=== PATIENT | female | born 1985 | race Caucasian/White ===

== ENCOUNTER 2024-08-11 06:42 | Day surgery (SDC) | payer MEDICAID ==
[2024-08-07 10:48] LABS: Urine Bacteria None Seen /hpf (None Seen)
[2024-08-07 10:52] LABS: Basophils # (auto) 0.1 10 ^3/uL (0-0.2); Eosinophils # (auto) 0.2 10 ^3/uL (0-0.8); Eosinophils % (auto) 3.2 % (0.0-7.0); Hematocrit 41.6 % (36.0-46.0); Lymphocytes # (auto) 1.8 10 ^3/uL (0.4-5.4); Lymphocytes % (auto) 26.7 % (10.0-50.0); Mean Corpuscular Hemoglobin 32.6 pg (28.0-32.0); Mean Corpuscular Hgb Conc. 33.7 g/dL (32.0-36.0); Mean Corpuscular Volume 96.6 fL (80.0-100.0); Monocytes # (auto) 0.4 10 ^3/uL (0-1.3); Monocytes % (auto) 5.9 % (0.0-12.0); Neutrophils # (auto) 4.3 10 ^3/uL (1.6-8.6); Neutrophils % (auto) 63.2 % (37.0-80.0); Platelet Count (auto) 268 10^3/uL (140-450); Red Blood Cells 4.31 10^6/uL (4.0-5.20); White Blood Cell 6.8 10^3/uL (4.4-10.8)
[2024-08-07 11:03] LABS: Urine Blood Negative /uL (Negative); Urine Clarity Clear (Clear); Urine Color Light-Yellow (Yellow); Urine Protein, UAD Negative (Negative); Urine Specific Gravity 1.006 (1.001-1.035); Urine Urobilinogen Normal (Negative); Urine WBC <1 /hpf (0 - 5); Urine pH 7.5 (5.0-9.0)
[2024-08-07 11:06] LABS: INR 1.02 (0.9-1.15); Prothrombin Time 10.8 sec (9.3-11.8)
[2024-08-07 11:47] LABS: Alanine Aminotransferase 13 U/L (7-40); Albumin 4.4 g/dL (3.2-4.8); Alkaline Phosphatase 39 U/L (46-116); Anion Gap 6 (5-15); Aspartate Aminotransferase 17 U/L (13-40); BUN/Creatinine Ratio 10.8 (10.0-20.0); Blood Urea Nitrogen 9 mg/dL (9-23); Calcium 9.5 mg/dL (8.7-10.4); Carbon Dioxide 29 mmol/L (20-31); Chloride 105 mmol/L (98-107); Glucose 97 mg/dL (74-106); Potassium 4.2 mmol/L (3.5-5.1); Sodium 140 mmol/L (136-145); Total Protein 6.9 g/dL (5.7-8.2)
[~2024-08-11] VITALS: Ht 165.1 cm; Wt 59.0 kg
[~2024-08-11 06:42] MED LIST: GABA-1308 PO; IBUP-1456 PO; MELO15TA29 PO
[2024-08-11] MEDS ORDERED: LIDOCAINE 1% HCL (LOCAL ANESTH.) INJ 20ML MDV ONE (06:53)
[2024-08-11] MEDS ORDERED: BUPIVACAINE HCL 0.25% P/F 10 ML VIAL ONE (06:53)
[2024-08-11] MEDS ORDERED: fentaNYL CITRATE 100 MCG/2 ML VL ONE (07:01)
[2024-08-11] MEDS ORDERED: PROPOFOL 10 MG/ML 20 ML IV ONE (07:01)
[2024-08-11] MEDS ORDERED: ePHEDrine SULFATE 50 MG/ML AMP ONE (07:31)
[2024-08-11] MEDS ORDERED: DexAMETHasone SOD PHOS 10MG/1ML VIAL INJ ONE (07:31)
[2024-08-11] MEDS ORDERED: ONDANSETRON HCL 4 MG/2 ML VIAL ONE (07:31)
[2024-08-11] MEDS ORDERED: MEPERIDINE HCL (50 MG/ML) 1 ML VIAL ONE (07:35)
[2024-08-11] MEDS ORDERED: BUPIVACAINE 0.5% P/F INJ 10 ML VIAL ONE ×2 (07:53→08:01)
--- NOTE | 2024-08-11 08:26 | POSTOP ---
Post-Operative Note Post-Operative Note Preop Diagnosis Deltoid ligament sprain, left ankle Ankle instability, left Postop Diagnosis: Deltoid ligament sprain, left ankle Ankle instability, left Operation performed Repair of deltoid ligament, left ankle Specimen None Anesthesia: General Anesthesiologist: Dr. Griffin Blood Loss(fluid mgmt) minimal Tourniquet Time 45 minutes Surgeon Brinda Hernandes Curator Of Manuscripts None Implant 2.9mm Bruno biomet suture anchor Complications & Mgmt None Additional Remarks None Date 08/11/24 Time 08:24 BRINDA HERNANDES DPM Aug 11, 2024 08:26
[2024-08-11] MEDS ORDERED: CEPH500C PO (08:30)
[2024-08-11] MEDS ORDERED: ASPI1TAB20 PO (08:30)
[2024-08-11] MEDS ORDERED: HYDR-4798 PO (08:30)
[2024-08-11 08:39] VITALS: TEMP 98; O2SAT 98
[2024-08-11] MEDS ORDERED: MEPERIDINE HCL (25 MG/ML) 1ML VIAL IV PRN (08:45)
[2024-08-11] MEDS ORDERED: HYDROmorphone HCL 2 MG/ML VL/or syr IV PRN (08:45)
[2024-08-11] MEDS ORDERED: ACETAMINOPHEN IV 1000 MG/100ML (10MG/ML) IV PRN (08:45)
[2024-08-11] MEDS: ONDANSETRON HCL 4 MG/2 ML VIAL IV ONE (09:03)
[2024-08-11 09:24] VITALS: BP 108/65; PULSE 79; RESP 12; O2SAT 96
[2024-08-11] MEDS: METOCLOPRAMIDE HCL 5MG/ml INJ 2ml VIAL IV ONE (09:30)
--- NOTE | 2024-08-11 20:43 | DVHOP2 ---
Operative Report - 2 Report Details Date: 08/11/24 Preop Diagnosis: Deltoid ligament sprain, left ankle Ankle instability, left Postop Diagnosis: Deltoid ligament sprain, left ankle Ankle instability, left Surgeon: Brinda Hernandes Manager Night: None Anesthesiologist: Dr. Griffin Anesthesia: General Implant: 2.9mm Bruno biomet suture anchor Consent: The patient was informed of the risks and benefits of the procedure. These include but are not limited to complications of anesthesia, postoperative infection, incomplete relief of symptoms, recurrence of symptoms, damage to blood vessels, nerves and tendons, deep venous thrombosis, pulmonary embolism and possible need for repeat surgery in the future. Complications: None Estimated Blood Loss: minimal Findings: Consistent with the procedure Indications for Surgery: left medial ankle pain Name of Procedure Performed Repair of deltoid ligament, left ankle Procedure Details Procedure Details: The patient was identified in the preoperative holding area where the proper IV had been instituted. The history, physical, and consent forms were reviewed, signed, and copies were placed in the chart. The patient confirmed NPO status since midnight. The patient was medically cleared by Anesthesia with no contraindications to the planned procedure. All of the patient's questions and concerns were addressed and no guarantees were given or implied. The patient was then transported to the operating room and placed on the table in the supine position. Several layers of webril were then placed around the l eft thigh and a pneumatic tourniquet was applied. At this time, General anesthesia was established. An Ankle block to the left ankle was done with 10cc of 2% Lidocaine plain. At this time, left foot and ankle was prepped and draped in the usual sterile manner. A time out was performed and all included information confirmed and agreed upon. The tourniquet was then inflated to a total of 250?mmHg. Attention was then directed to the medial left ankle where a linear incision approximately 4-cm long was made in the skin extending over the medial malleolus with a #15 blade. This incision was then carried down full thickness over the through the subcutaneous tissue, being sure to cauterize any vessels as necessary. The deltoid ligament was identified and noted to be ruptured. The capsule and medial ligamentous complex was sharply dissected free from the medial malleolus taking care to leave a cuff of capsular tissue as the proximal edge of the medial malleolus. The posterior tibial tendon was identified and inspected with no obvious tears present. The medial malleolus was prepped for anchor insertion. One 2.9mm Bruno Biomet suture anchor was then placed under fluoroscopic guidance and the fiberwire sutures were released. The Deltoid ligament and capsule were then advanced on to the medial malleolus while holding slight inversion and tied and cut. The remaining fiberwire was used to repair capsular cuff further augmenting the repair. The medial ankle complex was stressed noting good stability. The area was copiously irrigated with sterile saline. The deep tissue was then reapproximated with 3-0 Vicryl in a simple interrupted suture fashion. The subcutaneous tissue tissue was then closed with 4-0 Vicryl in a continuous running suture fashion. The skin was then reapproximated using 3-0 Nylon in a horizontal mattress fashion. The incision was dressed with betadine soaked adaptic, dry gauze and kerlix. The tourniquet was deflated and instantaneous perfusion was noted to all digits of the left foot. A well padded posterior splint was applied to left lower extremity keeping the ankle in slight inversion. The pt was then transported to PACU tolerating both anesthesia and procedure well with vital signs stable and vascular status intact. Pt will be discharged home per PACU with the following written and oral postoperative instructions. 1. Keep dressing dry, clean and intact until follow-up appointment 2. Non weightbearing to the left foot , use assistive devices for ambulation 3. Ice and elevate extremity when at rest 4. Follow-up as scheduled Specimen: None Condition Stable Disposition Home BRINDA HERNANDES DPM Aug 11, 2024 20:43
--- NOTE | 2024-08-29 14:33 | DVH ---
XY C ARM FLUOROSCOPY UP TO 60MIN, HISTORY: REPAIR OF LEFT ANKLE DISRUPTIVE LIGAMENTS TECHNICAL DATA: 10 intraoperative fluoroscopic spot images were obtained of the ankle. COMPARISON: None FINDINGS/IMPRESSION: C-arm fluoroscopic images were obtained for anatomic localization. The images are of low resolution b ut demonstrate instrumentation over the ankle . Total fluoroscopy time was 12 seconds. Please see the operative report for further details.
== END 2024-08-11 09:45 | disposition home or self-care (01) ==
LOC: SUR 06:42
PROVIDERS: ATTEND Student in an Organized Health Care Education/Training Program
DX: S93.422A Sprain of deltoid ligament of left ankle, initial encounter (principal); M25.372 Other instability, left ankle; M76.822 Posterior tibial tendinitis, left leg; F11.90 Opioid use, unspecified, uncomplicated; F17.210 Nicotine dependence, cigarettes, uncomplicated; Z90.710 Acquired absence of both cervix and uterus; Z88.2 Allergy status to sulfonamides; Z98.891 History of uterine scar from previous surgery; Z98.890 Other specified postprocedural states; Z79.82 Long term (current) use of aspirin; X58.XXXA Exposure to other specified factors, initial encounter; Y93.89 Activity, other specified; Y92.89 Other specified places as the place of occurrence of the external cause; Y99.8 Other external cause status
CPT/HCPCS: 27695; 36415; 64445; 64447; 73600; 80053; 81001; 84702; 85025; 85610; 85730; C1713; J1100; J2003; J2175; J2405; J2704; J2765; J3010; J3490; J7030; 76000

== ENCOUNTER 2025-03-05 10:54 | Inpatient (IN) | payer MEDICAID ==
[2025-03-01 10:53] LABS: Urine Bacteria None Seen /hpf (None Seen)
[2025-03-01 11:03] LABS: Basophils # (auto) 0.1 10 ^3/uL (0-0.2); Basophils % (auto) 0.4 % (0.0-2.0); Eosinophils # (auto) 0.1 10 ^3/uL (0-0.8); Eosinophils % (auto) 0.7 % (0.0-7.0); Hematocrit 42.5 % (36.0-46.0); Hemoglobin 14.2 g/dL (12.2-16.2); Lymphocytes # (auto) 1.6 10 ^3/uL (0.4-5.4); Lymphocytes % (auto) 14.1 % (10.0-50.0); Mean Corpuscular Hemoglobin 31.5 pg (28.0-32.0); Mean Corpuscular Hgb Conc. 33.5 g/dL (32.0-36.0); Mean Corpuscular Volume 93.9 fL (80.0-100.0); Monocytes # (auto) 0.4 10 ^3/uL (0-1.3); Monocytes % (auto) 3.5 % (0.0-12.0); Neutrophils # (auto) 9.4 10 ^3/uL (1.6-8.6); Neutrophils % (auto) 81.3 % (37.0-80.0); Platelet Count (auto) 258 10^3/uL (140-450); Red Blood Cells 4.53 10^6/uL (4.0-5.20); Red Cell Distribution Width 13.7 % (11.8-14.3); White Blood Cell 11.6 10^3/uL (4.4-10.8)
[2025-03-01 11:15] LABS: Alanine Aminotransferase 31 U/L (7-40); Albumin 4.7 g/dL (3.2-4.8); Anion Gap 5 (5-15); Aspartate Aminotransferase 23 U/L (13-40); Blood Urea Nitrogen 12 mg/dL (9-23); Calcium 9.8 mg/dL (8.7-10.4); Carbon Dioxide 27 mmol/L (20-31); Chloride 107 mmol/L (98-107); Glucose 96 mg/dL (74-106); Potassium 4.7 mmol/L (3.5-5.1); Sodium 139 mmol/L (136-145); Total Protein 7.5 g/dL (5.7-8.2)
[2025-03-01 11:16] LABS: Alkaline Phosphatase 42 U/L (46-116); Bilirubin, Total 1.4 mg/dL (0.2-1.0)
[2025-03-01 11:17] LABS: INR 0.95 (0.9-1.15); Partial Thromboplastin Time 25.2 SEC (24.5-34.5); Prothrombin Time 10.1 sec (9.3-11.8)
[2025-03-01 11:27] LABS: Urine Blood Negative /uL (Negative); Urine Clarity Clear (Clear); Urine Color Light-Yellow (Yellow); Urine Protein, UAD Negative (Negative); Urine Specific Gravity 1.009 (1.001-1.035); Urine Squamous Epithelial Cell FEW /hpf (<5); Urine Urobilinogen Normal (Negative); Urine WBC < 1 /HPF (0-5); Urine pH 6.5 (5.0-9.0)
[~2025-03-05] VITALS: Ht 165.1 cm; Wt 69.4 kg
[2025-03-05] MEDS ORDERED: KETAMINE 50mg/ML 1ml syringe ONE (11:54)
[2025-03-05] MEDS ORDERED: HYDROmorphone HCL 2 MG/ML VL/or syr ONE (11:54)
[2025-03-05] MEDS ORDERED: PROPOFOL 10 MG/ML 20 ML IV ONE (11:54)
[2025-03-05] MEDS ORDERED: ONDANSETRON HCL 4 MG/2 ML VIAL ONE (11:54)
[2025-03-05] MEDS ORDERED: GLYCOPYRROLATE 0.2 MG/ML 1ML VIAL ONE (11:54)
[2025-03-05] MEDS ORDERED: DexAMETHasone SOD PHOS 10MG/1ML VIAL INJ ONE (11:54)
[2025-03-05] MEDS ORDERED: fentaNYL CITRATE 100 MCG/2 ML VL ONE (11:54)
[2025-03-05] MEDS ORDERED: ePHEDrine SULFATE 50 MG/ML AMP ONE (11:54)
[2025-03-05] MEDS ORDERED: KETOROLAC TROMETH 30 MG/ML 1ML VIAL ONE (11:54)
[2025-03-05] MEDS ORDERED: MIDAZOLAM HCL 2MG/2ML 2ml VIAL (1mg/ml) ONE (11:54)
[2025-03-05] MEDS: BUPIVACAINE 0.5% P/F INJ 10 ML VIAL ONE (12:26)
[2025-03-05] MEDS: ceFAZolin 2 GM/D5W50ml 50 ML IV ONE (12:45)
--- NOTE | 2025-03-05 13:11 | DVHOP2 ---
Operative Report - 2 Report Details Date: 03/05/25 Preop Diagnosis: 1. Left ankle instability 2. Left high ankle sprain 3. Left ankle sprain 4. Left ankle pain Postop Diagnosis: Same as preop Surgeon: Padmini Pollack MD Anesthesiologist: See anesthesia Anesthesia: General Implant: Arthrex 2 hole plate with 2 syndesmosis tight ropes Arthrex FiberTak x2 Consent: The patient was informed of the risks and benefits of the procedure. These include but are not limited to complications of anesthesia, postoperative infection, incomplete relief of symptoms, recurrence of symptoms, damage to blood vessels, nerves and tendons, deep venous thrombosis, pulmonary embolism and possible need for repeat surgery in the future. Complications: None Estimated Blood Loss: Minimal Fluids: See anesthesia Findings: Consistent with the diagnosis Indications for Surgery: Worsening left ankle pain instability Name of Procedure Performed 1. Left ankle syndesmosis ORIF (35119) 2. Left ankle brostrom (27448) 3. Left ankle arthrotomy (13689) Procedure Details Procedure Details: PRE-PROCEDURE INFORMATION: In the pre-op holding area, the extremity to be operated on was clearly marked and the patient verified correct laterality of the marking. The patient was transferred to the OR table and placed in a supine position. A timeout was performed in which identification of the correct patient, procedure, location, and materials was done. The left foot and leg were prepped and draped in normal sterile fashion. The foot and leg were exsanguinated and the thigh tourniquet was inflated to 250 mmHg. DESCRIPTION OF PROCEDURE: Attention was directed to the left lateral leg with a fibula fracture was located. A linear longitudinal incision was made on the lateral leg. This incision was deepened with sharp and blunt dissection to the level of the periosteum. Care was taken throughout the dissection to avoid damage to the neurovascular structures in the peroneal tendons. A periosteal elevator was used to reflect all the soft tissue and periosteum from the bone in the fracture fragment. Utilizing a 2 hole plate, an all of was used to hold the plate on the lateral side of the fibula. Using the accompanying drill for the syndesmosis tight rope, the distal hole was then drilled and the suture button was then placed with adequate compression. The proximal hole was then drilled the same way. It was noted in the intraoperative fluoroscopy the adequate reduction of the deformity. All hardware was adequately placed verified on fluoroscopy as well. Attention was directed to the left lateral ankle where a curvilinear longitudinal incision was made just anterior to the distal fibula. This incision was deepened through blunt and sharp dissection to the level of both the fibula and the talus so that both were visualized. Care was taken throughout dissection to avoid damage to neurovascular structures. An arthrotomy of the ankle joint was performed revealing normal appearing joint fluid. It was noted that the anterior talofibular ligament was attenuated and needed repair. The talar dome was inspected and noted to be free of osteochondral lesions. An arthrex internal brace was then drilled and placed in the lateral cortice of the talus. Utilizing a periosteal elevator, the periosteum of the anterior distal fibula was reflected in preparation for the placement of the soft tissue anchors. A soft tissue anchor was then placed proximal and distal to the internal brace. The internal brace was then drilled and placed in the distal aspect of the fibula. The knotless fibertak anchors were then used to recreate the ATFL and CFL ligaments. Prior to the procedure being performed, there was a positive anterior drawer sign. After, this procedure, there was a negative anterior drawer. The capsule was then oversewn with 2-0 Vicryl. The wound was irrigated copiously with normal saline and closed in layers All surgical wounds were irrigated copiously with saline and closed in layers with the aforementioned suture material. A dry sterile dressing was placed on the surgical extremity. The patient was placed in a cam boot POSTOPERATIVE INFORMATION: The patient tolerated the above noted procedure and anesthesia well and was transferred to the PACU with vital signs stable, and vascular status intact with capillary refill intact to all digits. Postoperative instructions reviewed in detail with the patient with written instructions provided. Patient will return to clinic in approximately 10-14 days for first postoperative visit. Patient has the number of the clinic and was instructed to call prior to that time should any problems, questions, or concerns arise. Patient will be admitted to the hospital for pain control Condition Good Disposition Still a Patient PADMINI POLLACK DPM March 05, 2025 13:11
[2025-03-05 13:12] VITALS: PULSE 83; RESP 16; O2SAT 100
--- NOTE | 2025-03-05 14:23 | DVHHP2 ---
Review of Systems Allergies: Coded Allergies: Sulfa Antibiotics (Unverified Allergy, Severe, anaphylaxis, 08/07/24) Exam Vital Signs Vital Signs Date Time Temp Pulse Resp B/P (MAP) Pulse Ox O2 Delivery O2 Flow Rate FiO2 03/05/25 13:12 Mask 6.0 03/05/25 13:12 96.8 74 10 107/59 (75) 100 96.8 Labs/Xrays Labs Test 03/01/25 10:49 Range/Units White Blood Count 11.6 H 4.4-10.8 10^3/uL Red Blood Count 4.53 4.0-5.20 10^6/uL Hemoglobin 14.2 12.2-16.2 g/dL Hematocrit 42.5 36.0-46.0 % Mean Corpuscular Volume 93.9 80.0-100.0 fL Mean Corpuscular Hemoglobin 31.5 28.0-32.0 pg Mean Corpuscular Hemoglobin Concent 33.5 32.0-36.0 g/dL Red Cell Distribution Width 13.7 11.8-14.3 % Platelet Count 258 140-450 10^3/uL Mean Platelet Volume 7.6 6.9-10.8 fL Neutrophils (%) (Auto) 81.3 H 37.0-80.0 % Lymphocytes (%) (Auto) 14.1 10.0-50.0 % Monocytes (%) (Auto) 3.5 0.0-12.0 % Eosinophils (%) (Auto) 0.7 0.0-7.0 % Basophils (%) (Auto) 0.4 0.0-2.0 % Neutrophils # (Auto) 9.4 H 1.6-8.6 10 ^3/uL Lymphocytes # (Auto) 1.6 0.4-5.4 10 ^3/uL Monocytes # (Auto) 0.4 0-1.3 10 ^3/uL Eosinophils # (Auto) 0.1 0-0.8 10 ^3/uL Basophils # (Auto) 0.1 0-0.2 10 ^3/uL Nucleated Red Blood Cells 0.0 % Prothrombin Time 10.1 9.3-11.8 sec Prothrombin Time INR 0.95 0.9-1.15 Activated Partial Thromboplast Time 25.2 24.5-34.5 SEC Urine Color Light-yellow Yellow Urine Clarity Clear Clear Urine pH 6.5 5.0-9.0 Urine Specific [place] 1.009 1.001-1.035 Urine Protein Negative Negative Urine Ketones 1+ H Negative Urine Blood Negative Negative /uL Urine Nitrite Negative Negative Urine Bilirubin Negative Negative Urine Urobilinogen Normal Negative mg/dL Urine Leukocyte Esterase Negative Negative /uL Urine RBC <1 0 - 4 /hpf Urine Microscopic WBC < 1 0-5 /HPF Urine Squamous Epithelial Cells Few <5 /hpf Urine Bacteria None seen None Seen /hpf Urine Glucose Normal Normal mg/dL Sodium Level 139 136-145 mmol/L Potassium Level 4.7 3.5-5.1 mmol/L Chloride Level 107 98-107 mmol/L Carbon Dioxide Level 27 20-31 mmol/L Anion Gap 5 5-15 Blood Urea Nitrogen 12 9-23 mg/dL Creatinine 0.75 0.550-1.02 mg/dL Glomerular Filtration Rate Calc 104 >90 mL/min BUN/Creatinine Ratio 16.0 10.0-20.0 Serum Glucose 96 74-106 mg/dL Calcium Level 9.8 8.7-10.4 mg/dL Total Bilirubin 1.4 H 0.2-1.0 mg/dL Aspartate Amino Transferase (AST) 23 13-40 U/L Alanine Aminotransferase (ALT) 31 7-40 U/L Alkaline Phosphatase 42 L 46-116 U/L Total Protein 7.5 5.7-8.2 g/dL Albumin 4.7 3.2-4.8 g/dL Beta HCG, Quantitative 0.9 L 1.5-4.2 mIU/mL Assessment/Plan Assessment/Plan see dictated note Plan discussed with: Patient Date of Service: March 05, 2025 Billing Provider: MIRA LOWE MD Common Visit Codes: [id number] INP/OBS CARE (HIGH) MIRA LOWE MD March 05, 2025 14:23
[2025-03-05] MEDS ORDERED: ONDANSETRON HCL 4 MG/2 ML VIAL IV PRN (14:30)
[2025-03-05] MEDS ORDERED: ACETAMINOPHEN 325 MG TAB PO PRN (14:30)
--- NOTE | 2025-03-05 14:46 | DVHHP ---
ADMIT DATE: 03/05/2025 HISTORY OF PRESENT ILLNESS: The patient is a 39-year-old lady who is admitted after she underwent surgery on the left ankle for malunion of the ankle. The patient at this time denies any significant pain. No chest pain, no shortness of breath, nausea or vomiting. REVIEW OF SYSTEMS: Review of the rest of systems, otherwise currently negative. PAST MEDICAL HISTORY: Significant for trauma to the right side of the face with subsequent neuropathic pain. MEDICATIONS: She takes gabapentin 300 mg 3 times a day. SOCIAL HISTORY: She smokes marijuana. Denies smoking tobacco or alcohol. Lives at home with her family. FAMILY HISTORY: Negative. PHYSICAL EXAMINATION: GENERAL: The patient is awake and alert. VITAL SIGNS: Temperature of 98.6, pulse 72 per minute, blood pressure 113/76. SHEENT: Unremarkable. NECK: There is no JVD. No pedal edema. LUNGS: Equal bilaterally. No added sounds. CARDIOVASCULAR: S1 and S2 are regular without murmurs. ABDOMEN: Soft. There is no organomegaly. NEUROLOGIC: Nonfocal. MUSCULOSKELETAL: The left ankle is currently in a dressing. ASSESSMENT AND PLAN: * Status post previous right facial trauma with neuropathic pain, for which she will continue on gabapentin. * Status post left ankle surgery for malunion of the ankle, for which she will be placed on pain medication and followed up by Dr. Patel. MD LEO Johnson/GINNY TID: [id number] RECEIPT: [id number]
[2025-03-05] MEDS: HYDROmorphone HCL 2 MG/ML VL/or syr IV PRN (15:03)
--- NOTE | 2025-03-05 15:09 | DVHHP ---
ADMIT DATE: 03/05/2025 HISTORY OF PRESENT ILLNESS: The patient is a 39-year-old lady who was admitted after she underwent surgery on the left ankle for malunion of her left ankle trauma some time ago. The patient at this time denies any significant pain. No chest pain. No nausea or vomiting. No shortness of breath. REVIEW OF REST OF SYSTEMS: Otherwise negative. PAST MEDICAL HISTORY: Significant for trauma on the right side of the face with subsequent pain issues. MEDICATIONS: She takes gabapentin 300 mg t.i.d. ALLERGIES: SULFA. SOCIAL HISTORY: Using marijuana. Denies smoking. Lives with family. FAMILY HISTORY: Negative. PHYSICAL EXAMINATION: GENERAL: The patient is awake and alert. VITAL SIGNS: Temperature of 98.4, pulse 71 per minute, blood pressure 114/79. SHEENT: Unremarkable. NECK: There is no JVD. LUNGS: Equal bilaterally. No added sounds. CARDIOVASCULAR: S1, S2 is regular without murmurs. ABDOMEN: Soft. There is no organomegaly. EXTREMITIES: No pedal edema. NEUROLOGIC: Nonfocal. MUSCULOSKELETAL: The left ankle is currently in a dressing. ASSESSMENT AND PLAN: * Right facial injury with neuropathic pain. The patient will continue on gabapentin. * Status post left ankle surgery for malunion of previous fracture. The patient will be placed on pain medication and followed up by Podiatry. MD LEO Johnson/MARIKA/DARLENE TID: [id number] RECEIPT: [id number]
[2025-03-05] MEDS: HYDROcodone-ACET 5/325MG TAB PO PRN (15:42)
[2025-03-05 17:00] VITALS: BP 114/62; PULSE 71; RESP 18; TEMP 97.3; O2SAT 97
[2025-03-05 17:01] VITALS: O2SAT 96
[2025-03-05] MEDS: ONDANSETRON HCL 4 MG/2 ML VIAL IV ONE (17:55)
[2025-03-05] MEDS: LIDOCAINE W/ EPINEPHRINE 1% 20ML VIAL ONE (17:55)
[2025-03-05] MEDS: MORPHINE SULFATE INJ 2 MG/ml SYRG IV PRN (20:34)
[2025-03-05 20:39] VITALS: BP 129/61; PULSE 81; RESP 16; TEMP 98.3; O2SAT 97
[2025-03-05] MEDS: GABAPENTIN 300 MG CAP PO SCH (21:42)
[2025-03-06 01:00] VITALS: BP 114/59; PULSE 74; RESP 14; TEMP 97.9; O2SAT 95
[2025-03-06 05:00] VITALS: BP 112/69; PULSE 68; RESP 14; TEMP 98.2; O2SAT 100
[2025-03-06 06:27] LABS: Basophils # (auto) 0 10 ^3/uL (0-0.2); Basophils % (auto) 0.1 % (0.0-2.0); Eosinophils # (auto) 0 10 ^3/uL (0-0.8); Hemoglobin 13.3 g/dL (12.2-16.2); Lymphocytes % (auto) 8.4 % (10.0-50.0); Mean Corpuscular Hemoglobin 32.4 pg (28.0-32.0); Mean Corpuscular Volume 95.4 fL (80.0-100.0); Monocytes # (auto) 0.4 10 ^3/uL (0-1.3); Monocytes % (auto) 3.9 % (0.0-12.0); Neutrophils % (auto) 87.6 % (37.0-80.0); Platelet Count (auto) 242 10^3/uL (140-450); Red Blood Cells 4.09 10^6/uL (4.0-5.20); Red Cell Distribution Width 13.4 % (11.8-14.3); White Blood Cell 11.4 10^3/uL (4.4-10.8)
[2025-03-06 06:31] LABS: Alanine Aminotransferase 14 U/L (7-40); Anion Gap 6 (5-15); BUN/Creatinine Ratio 9.4 (10.0-20.0); Calcium 9.6 mg/dL (8.7-10.4); Carbon Dioxide 27 mmol/L (20-31); Chloride 107 mmol/L (98-107); Potassium 4.8 mmol/L (3.5-5.1); Sodium 140 mmol/L (136-145); Total Protein 6.4 g/dL (5.7-8.2)
[2025-03-06 06:32] LABS: Bilirubin, Total 0.7 mg/dL (0.2-1.0)
[2025-03-06 06:33] LABS: Alkaline Phosphatase 37 U/L (46-116); Aspartate Aminotransferase 12 U/L (13-40); Blood Urea Nitrogen 6 mg/dL (9-23); Glucose 109 mg/dL (74-106)
[2025-03-06 09:00] VITALS: BP 101/73; PULSE 69; RESP 16; TEMP 97.9; O2SAT 100
--- NOTE | 2025-03-06 10:35 | DVHPN2 ---
Progress Note Date Seen: March 06, 2025 Medical Necessity Reason Pt with a Central, PICC or Fol: No Subjective Patient reports: No new complaints Review of Systems: HEENT:Normal, CVS:Normal, RESPIRATORY:Normal, GI:Normal, :Normal, MSK:Normal, NEURO:Normal Objective vital signs Vital Sign Date Time Temp Pulse Resp B/P (MAP) Pulse Ox O2 Delivery O2 Flow Rate FiO2 03/06/25 09:00 97.9 69 16 101/73 (82) 100 97.9 03/06/25 08:10 Room Air* 0 21 Total Intake and Output 03/05/25 03/05/25 03/06/25 15:00 23:00 07:00 Intake Total 150 ml 650 ml Balance 150 ml 650 ml medications Current Medications Medications Dose Ordered Sig/Rosario Route Start Time Stop Time Status Last Admin Dose Admin Gabapentin 300 mg TID PO 03/05/25 22:00 03/06/25 06:00 300 MG Acetaminophen/ Hydrocodone Bitart 1 tab Q6HPRN PRN PO 03/05/25 14:30 03/06/25 04:25 1 TAB Acetaminophen 650 mg Q6HP PRN PO 03/05/25 14:30 Morphine Sulfate 2 mg Q4HPRN PRN IV 03/05/25 14:30 03/06/25 07:50 2 MG Ondansetron HCl 4 mg Q6HPRN PRN IV 03/05/25 14:30 Examination: GENERAL:Normal, HEENT:Normal, NECK:Normal, LUNGS:Normal, CVS:Normal, ABDOMEN:Normal, MSK:Normal, MSK:Abnormal (left ankle boot), SKIN:Normal, NEURO:Normal, :Normal laboratory and microbiology Laboratory Tests 03/06/25 05:34 Test 03/06/25 05:34 Range/Units Serum Glucose 109 H 74-106 mg/dL Problem List/Assessment/Plan Problem List/Assessment/Plan * s/p Right facial injury with neuropathic pain. The patient will continue on gabapentin. * Status post left ankle surgery for malunion of previous fracture. The patient will be placed on pain medication and followed up by Podiatry, cont pain meds Plan discussed with: Patient My Orders My Orders Orders - MIRA LOWE MD Procedure Category Date Status Time Admit ADMIT 03/05/25 Transmitted 14:20 Regular Diet DIET 03/05/25 Transmitted Dinner Gabapentin Capsule PHA 03/05/25 In Process (Neurontin Capsule) 22:00 Hydrocodone-Acet PHA 03/05/25 In Process 5/325mg Tab ([place] 14:30 Acetaminophen Tablet PHA 03/05/25 In Process (Tylenol Tablet) 14:30 Morphine Sulfate PHA 03/05/25 In Process Injection 14:30 Ondansetron Hcl PHA 03/05/25 In Process (Zofran) 14:30 Date of Service: March 06, 2025 Billing Provider: MIRA LOWE MD Common Visit Codes: [id number] INP/OBS CARE(HIGH) MIRA LOWE MD March 06, 2025 10:35
[2025-03-06 13:00] VITALS: BP 110/68; PULSE 68; RESP 18; TEMP 98.4; O2SAT 100
[2025-03-06 17:00] VITALS: BP 130/94; PULSE 85; RESP 18; TEMP 98.8; O2SAT 100
[2025-03-06] MEDS: OXYCODONE W/ ACETAMINOPHEN 5/325MG TABLET PO PRN (19:59)
[2025-03-06 21:00] VITALS: BP 102/75; PULSE 82; RESP 19; TEMP 98.1; O2SAT 99
[2025-03-07 01:00] VITALS: BP 110/59; PULSE 74; RESP 17; TEMP 98.3; O2SAT 99
[2025-03-07 05:00] VITALS: BP 112/67; PULSE 73; RESP 17; TEMP 98.5; O2SAT 97
[2025-03-07 09:00] VITALS: BP_SYST 107; BP_SYST 122; BP_DIAS 68; BP_DIAS 70; PULSE 72; PULSE 74; RESP 16; TEMP 98; TEMP 98.2; O2SAT 96; O2SAT 99
--- NOTE | 2025-03-07 09:48 | DVHDS2 ---
Discharge Summary Date of Admission March 05, 2025 at 14:20 Date of Discharge: March 07, 2025 Labs/Diagnostic Data: Laboratory Results Test 03/06/25 05:34 03/01/25 10:49 White Blood Count 11.4 10^3/uL (4.4-10.8) Red Blood Count 4.09 10^6/uL (4.0-5.20) Hemoglobin 13.3 g/dL (12.2-16.2) Hematocrit 39.0 % (36.0-46.0) Mean Corpuscular Volume 95.4 fL (80.0-100.0) Mean Corpuscular Hemoglobin 32.4 pg (28.0-32.0) Mean Corpuscular Hemoglobin Concent 34.0 g/dL (32.0-36.0) Red Cell Distribution Width 13.4 % (11.8-14.3) Platelet Count 242 10^3/uL (140-450) Mean Platelet Volume 8.1 fL (6.9-10.8) Neutrophils (%) (Auto) 87.6 % (37.0-80.0) Lymphocytes (%) (Auto) 8.4 % (10.0-50.0) Monocytes (%) (Auto) 3.9 % (0.0-12.0) Eosinophils (%) (Auto) 0.0 % (0.0-7.0) Basophils (%) (Auto) 0.1 % (0.0-2.0) Neutrophils # (Auto) 10.0 10 ^3/uL (1.6-8.6) Lymphocytes # (Auto) 1.0 10 ^3/uL (0.4-5.4) Monocytes # (Auto) 0.4 10 ^3/uL (0-1.3) Eosinophils # (Auto) 0 10 ^3/uL (0-0.8) Basophils # (Auto) 0 10 ^3/uL (0-0.2) Nucleated Red Blood Cells 0.0 % Sodium Level 140 mmol/L (136-145) Potassium Level 4.8 mmol/L (3.5-5.1) Chloride Level 107 mmol/L (98-107) Carbon Dioxide Level 27 mmol/L (20-31) Anion Gap 6 (5-15) Blood Urea Nitrogen 6 mg/dL (9-23) Creatinine 0.64 mg/dL (0.550-1.02) Glomerular Filtration Rate Calc 116 mL/min (>90) BUN/Creatinine Ratio 9.4 (10.0-20.0) Serum Glucose 109 mg/dL (74-106) Calcium Level 9.6 mg/dL (8.7-10.4) Total Bilirubin 0.7 mg/dL (0.2-1.0) Aspartate Amino Transferase (AST) 12 U/L (13-40) Alanine Aminotransferase (ALT) 14 U/L (7-40) Alkaline Phosphatase 37 U/L (46-116) Total Protein 6.4 g/dL (5.7-8.2) Albumin 4.0 g/dL (3.2-4.8) Prothrombin Time 10.1 sec (9.3-11.8) Prothrombin Time INR 0.95 (0.9-1.15) Activated Partial Thromboplast Time 25.2 SEC (24.5-34.5) Urine Color Light-yellow (Yellow) Urine Clarity Clear (Clear) Urine pH 6.5 (5.0-9.0) Urine Specific [place] 1.009 (1.001-1.035) Urine Protein Negative (Negative) Urine Ketones 1+ (Negative) Urine Blood Negative /uL (Negative) Urine Nitrite Negative (Negative) Urine Bilirubin Negative (Negative) Urine Urobilinogen Normal mg/dL (Negative) Urine Leukocyte Esterase Negative /uL (Negative) Urine RBC <1 /hpf (0 - 4) Urine Microscopic WBC < 1 /HPF (0-5) Urine Squamous Epithelial Cells Few /hpf (<5) Urine Bacteria None seen /hpf (None Seen) Urine Glucose Normal mg/dL (Normal) Beta HCG, Quantitative 0.9 mIU/mL (1.5-4.2) Other Laboratory Tests 03/06/25 05:34 Brief Hx & Hospital Course: SEE DICTATED NOTE Condition at Discharge: Good Final Diagnosis/Problems List LEFT ANKLE SURGERY Discharge Disposition: Home Discharge Instruct/Medications Diet: Regular Activity: See Comment Activity comment: LEFT LEG CRUTCHES Follow Up/Referral: FU WITH PODIATRY IN 1 WK Medications: SCRIPT TO PHARMACY DC HOME IF OK WITH PODIATRY Discharge Statement: "Patient was advised to return to the ER or call 911 if any headaches, dizziness, shortness of breath, chest pain, abdominal pain, bleeding, fevers, or worsening of medical condition. Patient was counseled about treatment plan, medications, possible side effects, patientverbalized understanding. All questions were answered to the best of my ability. This discharge took greater then 30 minutes in planning, reviewing documentation, counseling the patient, and discussing with other team members." ASSESSMENT ASSESSMENT Assessment LEFT ANKLE SURGERY Date of Service: March 07, 2025 Billing Provider: MIRA LOWE MD Common Visit Codes: [id number] DISCH DAY >30min MIRA LOWE MD March 07, 2025 09:48
[2025-03-07] MEDS ORDERED: PERCOT PO (09:49)
--- NOTE | 2025-03-07 10:20 | DVHDS ---
DATE OF DISCHARGE: 03/07/2025 HISTORY OF PRESENT ILLNESS: The patient is a 39-year-old lady who was admitted after she underwent surgery for left ankle for malunion. The patient has previous history of right facial trauma. HOSPITAL COURSE: The patient did well postoperatively. The patient's pain is improved. She will now be discharged home to be on Percocet 5/325 t.i.d. p.r.n. for pain and follow up with Dr. Patel in the next 1-2 weeks. FINAL DIAGNOSES: Therefore, * History of facial trauma with neuropathic pain. * Status post left ankle surgery for malunion. Time spent in discharge planning and review of plan with the patient and nursing was 36 minutes. MD LEO Johnson/KELSIE TID: [id number] RECEIPT: [id number]
[2025-03-07 12:11] VITALS: BP 114/81; PULSE 80; RESP 18
== END 2025-03-07 14:20 | disposition home or self-care (01) | DRG 313 ==
LOC: SUR 10:54 → OVERFLOW 14:20 → EAST 16:31
PROVIDERS: ADMIT Internal Medicine; ATTEND Internal Medicine
PROC: 0QSK04Z Reposition Left Fibula with Internal Fixation Device, Open Approach (ICD-10-PCS; 2025-03-05)
PROC: 0MQR0ZZ Repair Left Ankle Bursa and Ligament, Open Approach (ICD-10-PCS; principal; 2025-03-05 12:10)
DX: S93.492A Sprain of other ligament of left ankle, initial encounter (principal); F41.9 Anxiety disorder, unspecified; M25.372 Other instability, left ankle; X58.XXXA Exposure to other specified factors, initial encounter; Y93.89 Activity, other specified; Y92.89 Other specified places as the place of occurrence of the external cause; Y99.8 Other external cause status; Z88.2 Allergy status to sulfonamides; Z82.49 Family history of ischemic heart disease and other diseases of the circulatory system
CPT/HCPCS: 36415; 80053; 81001; 84702; 85025; 85610; 85730; G0378; J1100; J1885; J2250; J2405; J2704; J3490

== ENCOUNTER 2025-09-26 10:35 | Outpatient (CLI) | payer MEDICAID ==
[~2025-09-26 10:35] MED LIST changes: +PERCOT PO
[2025-09-26 10:59] LABS: Hematocrit 41.5 % (36.0-46.0); Hemoglobin 14.2 g/dL (12.2-16.2); Mean Corpuscular Hemoglobin 32.2 pg (28.0-32.0); Mean Corpuscular Volume 94.3 fL (80.0-100.0); Nucleated Red Blood Cells % 0.0 %
[2025-09-26 11:05] LABS: Urine Protein, UAD Negative (Negative)
[2025-09-26 11:20] LABS: Albumin 4.2 g/dL (3.2-4.8); Anion Gap 9 (5-15); BUN/Creatinine Ratio 10.4 (10.0-20.0); Bilirubin, Total 1.1 mg/dL (0.2-1.0); Calcium 9.0 mg/dL (8.7-10.4); Carbon Dioxide 24 mmol/L (20-31); Glucose 96 mg/dL (74-106); Potassium 4.7 mmol/L (3.5-5.1); Sodium 140 mmol/L (136-145); Total Protein 6.9 g/dL (5.7-8.2)
[2025-09-26 11:21] LABS: Alanine Aminotransferase < 9 U/L (7-40); Alkaline Phosphatase 39 U/L (46-116); Blood Urea Nitrogen 8 mg/dL (9-23); Chloride 107 mmol/L (98-107)
[2025-09-26 13:07] LABS: Triglycerides 57 mg/dL (< 150)
[2025-09-26 13:09] LABS: Cholesterol 185 mg/dL (< 200)
[2025-09-26 13:13] LABS: HDL Cholesterol 63 mg/dL (40-59)
== END 2025-09-26 17:00 | disposition home or self-care (01) ==
LOC: LAB 10:35
PROVIDERS: ATTEND Internal Medicine
DX: E78.00 Pure hypercholesterolemia, unspecified (principal); R73.01 Impaired fasting glucose; Z00.01 Encounter for general adult medical examination with abnormal findings
CPT/HCPCS: 36415; 80053; 80061; 81001; 83036; 84439; 84443; 85025